=== PATIENT | male | born 1970 | race Two or more races ===

== ENCOUNTER 2017-12-23 19:03 | Emergency (ER) | payer OTHER ==
[~2017-12-23] VITALS: Ht 180.3 cm; Wt 77.1 kg
[~2017-12-23 19:03] MED LIST: ACYC800 PO; ALBIPROI INH; ALBU.083IS IH; ALBU90I INH; ALBU90OI; ALBU90OI INH; ALBU90OI6 INH; ALBUIS IH; AZIT250 PO; Albuterol17 G1 INH; CEPH500 PO; DELTASONE20 MG PO; DULERA 200 MCG/13 GM INH; FLUSAL2505 IH; FLUSAL5005 INH; HYDACE5 PO; HYDACE5325 PO; IPRAIS NEB; LEVO750; LEVO750 PO; Mucinex600 MG PO; OXYACE5T PO; PRED10 PO; PRED20 PO; PRIMATENE MIST; Prednisone20 MG PO; RXOXYACE PO; RXPROM25 PO; SULTRIDS PO; TIOT18 INH; TRIAOI IH; Ventolin Soln3 ML INH; Zithromax250 MG PO; [UNRECOGNIZED DRUG - OTHER]
[2017-12-23] MEDS ORDERED: Zithromax250 MG PO (21:07)
[2017-12-23] MEDS ORDERED: ALBU90OI INH (21:08)
[2017-12-23] MEDS ORDERED: Prednisone20 MG PO (21:08)
[2017-12-23] MEDS ORDERED: Proventil5 MG/1 ML INH (21:14)
[2018-06-16] MEDS ORDERED: Norco 5-325 Ta1 EACH PO (10:42)
[2018-06-16] MEDS ORDERED: Cleocin HCl300 MG PO (10:42)
== END 2017-12-23 21:17 | disposition home or self-care (01) ==
LOC: ER 19:03
DX: J44.1 Chronic obstructive pulmonary disease with (acute) exacerbation (principal); F17.220 Nicotine dependence, chewing tobacco, uncomplicated; Z88.0 Allergy status to penicillin; Z88.6 Allergy status to analgesic agent; Z91.012 Allergy to eggs; Z79.51 Long term (current) use of inhaled steroids; Z79.899 Other long term (current) drug therapy
CPT/HCPCS: 71046; 94644; 99284

== ENCOUNTER 2018-06-15 18:23 | Emergency (ER) | payer OTHER ==
[~2018-06-15] VITALS: Ht 180.3 cm; Wt 79.4 kg
[~2018-06-15 18:23] MED LIST changes: +Proventil5 MG/1 ML INH
[2018-06-16] MEDS ORDERED: Cleocin HCl300 MG PO (10:42)
[2018-06-16] MEDS ORDERED: Norco 5-325 Ta1 EACH PO (10:42)
== END 2018-06-15 20:31 | disposition left against medical advice (07) ==
LOC: ER 18:23
DX: Z53.21 Procedure and treatment not carried out due to patient leaving prior to being seen by health care provider (principal)

== ENCOUNTER 2018-09-23 20:29 | Emergency (ER) | payer OTHER ==
[~2018-09-23] VITALS: Ht 180.3 cm; Wt 63.5 kg
[~2018-09-23 20:29] MED LIST changes: +Cleocin HCl300 MG PO; +Norco 5-325 Ta1 EACH PO
[2018-09-23 21:31] LABS: BASOPHILS ABSOLUTE AUTO 0.06 K/mm3 (0.00-0.23); BASOPHILS PERCENT AUTO 1 % (0-2); EOSINOPHILS ABSOLUTE AUTO 0.32 K/mm3 (0.00-0.68); EOSINOPHILS PERCENT AUTO 4 % (0-6); Hematocrit 40.3 % (37.0-53.0); Hemoglobin 13.5 g/dL (13.5-17.5); IMMATURE GRAN ABSOLUTE AUTO 0.02 K/mm3 (0.00-0.10); IMMATURE GRAN PERCENT AUTO 0 % (0-1); LYMPHOCYTES ABSOLUTE AUTO 2.93 K/mm3 (0.84-5.20); LYMPHOCYTES PERCENT AUTO 40 % (21-46); MONOCYTES ABSOLUTE AUTO 0.51 K/mm3 (0.16-1.47); MONOCYTES PERCENT AUTO 7 % (4-13); Mean Corpuscular HGB Conc 33.5 g/dL (31.5-36.5); Mean Corpuscular Volume 99 fL (80-100); Mean Platelet Volume 10.2 fL (9.1-12.4); NEUTROPHILS ABSOLUTE AUTO 3.52 K/mm3 (1.96-9.15); NEUTROPHILS PERCENT AUTO 48 % (41-73); Platelet Count 328 K/mm3 (150-400); RDW Coefficient Variation 12.4 % (11.7-14.2); RDW Standard Deviation 44.8 fL (35.1-46.3); Red Blood Cell Count 4.09 M/mm3 (4.30-5.90); White Blood Cell Count 7.36 K/mm3 (4.00-11.30)
[2018-09-23 21:50] LABS: Alanine Aminotransfer (ALT/SGP 24 U/L (12-78); Albumin, Blood 3.4 g/dL (3.4-5.0); Albumin/Globulin Ratio 0.9 (0.8-1.8); Alk Phos 94 U/L (50-136); Anion Gap 8 mmol/L (6-16); Aspartate Aminotrans (AST/SGOT 21 U/L (12-37); Bilirubin, Total 0.2 mg/dL (0.1-1.0); Blood Urea Nitrogen 13 mg/dL (8-24); Bun/Creatinine Ratio 15.3 (12.0-20.0); CO2, Blood 27 mmol/L (21-32); Calcium, Blood 8.4 mg/dL (8.5-10.1); Chloride, Blood 102 mmol/L (98-108); Creatinine, Blood 0.85 mg/dL (0.60-1.20); Globulin, Blood 3.8 g/dL (2.2-4.0); Glomerular Filtration Rate >60 (60-); Glucose, Blood 89 mg/dL (70-99); Potassium, Blood 3.8 mmol/L (3.5-5.5); Sodium, Blood 137 mmol/L (136-145); Total Protein, Blood 7.2 g/dL (6.4-8.2)
[2018-09-23] MEDS ORDERED: Monodox100 MG PO (23:29)
== END 2018-09-24 00:25 | disposition home or self-care (01) ==
LOC: ER 20:29
PROVIDERS: Physician Assistant
DX: L03.114 Cellulitis of left upper limb (principal); Z23 Encounter for immunization; J45.909 Unspecified asthma, uncomplicated; F17.220 Nicotine dependence, chewing tobacco, uncomplicated; Z88.0 Allergy status to penicillin; Z88.6 Allergy status to analgesic agent; Z91.012 Allergy to eggs; Z79.899 Other long term (current) drug therapy
CPT/HCPCS: 36415; 80053; 83605; 85025; 90471; 90714; 96365; 99283-25

== ENCOUNTER 2018-10-06 15:55 | Emergency (ER) | payer OTHER ==
[~2018-10-06] VITALS: Ht 180.3 cm; Wt 74.8 kg
[~2018-10-06 15:55] MED LIST changes: +Monodox100 MG PO
[2018-10-06] MEDS ORDERED: Vibramycin100 MG PO (16:53)
[2018-10-06] MEDS ORDERED: Prednisone20 MG PO (16:53)
[2018-10-06] MEDS ORDERED: ALBU3IS INH (16:53)
[2018-10-06] MEDS ORDERED: ALBU90OI INH (16:53)
== END 2018-10-06 17:08 | disposition home or self-care (01) ==
LOC: ER 15:55
DX: J45.901 Unspecified asthma with (acute) exacerbation (principal); L03.012 Cellulitis of left finger; Z88.0 Allergy status to penicillin; Z88.8 Allergy status to other drugs, medicaments and biological substances; Z91.012 Allergy to eggs; F17.220 Nicotine dependence, chewing tobacco, uncomplicated
CPT/HCPCS: 94640; 99283-25

== ENCOUNTER 2018-10-28 22:18 | Emergency (ER) | payer OTHER ==
[~2018-10-28] VITALS: Ht 180.3 cm; Wt 74.8 kg
[~2018-10-28 22:18] MED LIST changes: +ALBU3IS INH; +Vibramycin100 MG PO
[2018-10-28 22:39] LABS: BASOPHILS ABSOLUTE AUTO 0.06 K/mm3 (0.00-0.23); BASOPHILS PERCENT AUTO 1 % (0-2); EOSINOPHILS ABSOLUTE AUTO 0.27 K/mm3 (0.00-0.68); EOSINOPHILS PERCENT AUTO 3 % (0-6); Hematocrit 41.1 % (37.0-53.0); Hemoglobin 13.6 g/dL (13.5-17.5); IMMATURE GRAN ABSOLUTE AUTO 0.14 K/mm3 (0.00-0.10); IMMATURE GRAN PERCENT AUTO 1 % (0-1); LYMPHOCYTES ABSOLUTE AUTO 4.59 K/mm3 (0.84-5.20); LYMPHOCYTES PERCENT AUTO 46 % (21-46); MONOCYTES PERCENT AUTO 6 % (4-13); Mean Corpuscular HGB 32.6 pg (26.0-34.0); Mean Corpuscular HGB Conc 33.1 g/dL (31.5-36.5); Mean Corpuscular Volume 99 fL (80-100); Mean Platelet Volume 9.8 fL (9.1-12.4); NEUTROPHILS ABSOLUTE AUTO 4.25 K/mm3 (1.96-9.15); NEUTROPHILS PERCENT AUTO 43 % (41-73); Platelet Count 335 K/mm3 (150-400); RDW Coefficient Variation 12.5 % (11.7-14.2); RDW Standard Deviation 46.1 fL (35.1-46.3); Red Blood Cell Count 4.17 M/mm3 (4.30-5.90); White Blood Cell Count 9.91 K/mm3 (4.00-11.30)
[2018-10-28 22:57] LABS: Alanine Aminotransfer (ALT/SGP 26 U/L (12-78); Albumin, Blood 3.5 g/dL (3.4-5.0); Albumin/Globulin Ratio 0.9 (0.8-1.8); Alk Phos 91 U/L (50-136); Anion Gap 9 mmol/L (6-16); Aspartate Aminotrans (AST/SGOT 31 U/L (12-37); Bilirubin, Total 0.4 mg/dL (0.1-1.0); Blood Urea Nitrogen 16 mg/dL (8-24); Bun/Creatinine Ratio 13.4 (12.0-20.0); CO2, Blood 27 mmol/L (21-32); Chloride, Blood 101 mmol/L (98-108); Creatinine, Blood 1.19 mg/dL (0.60-1.20); Ethanol (Alcohol), Blood, Med <3 mg/dL; Globulin, Blood 3.7 g/dL (2.2-4.0); Glomerular Filtration Rate >60 (60-); Glucose, Blood 142 mg/dL (70-99); Potassium, Blood 3.3 mmol/L (3.5-5.5); Sodium, Blood 137 mmol/L (136-145); Total Protein, Blood 7.2 g/dL (6.4-8.2)
[2018-10-28 22:59] LABS: International Normalized Ratio 0.96; Prothrombin Time Results 10.2 Sec (9.7-11.5)
== END 2018-10-29 00:26 | disposition short-term general hospital (02) ==
LOC: ER 22:18
PROVIDERS: Emergency Medicine
DX: S27.2XXA Traumatic hemopneumothorax, initial encounter (principal); S22.41XA Multiple fractures of ribs, right side, initial encounter for closed fracture; S12.600A Unspecified displaced fracture of seventh cervical vertebra, initial encounter for closed fracture; S42.001A Fracture of unspecified part of right clavicle, initial encounter for closed fracture; S02.0XXA Fracture of vault of skull, initial encounter for closed fracture; W22.8XXA Striking against or struck by other objects, initial encounter; Z88.0 Allergy status to penicillin; Z88.8 Allergy status to other drugs, medicaments and biological substances; Z91.012 Allergy to eggs; Z79.899 Other long term (current) drug therapy; Z79.52 Long term (current) use of systemic steroids; J45.909 Unspecified asthma, uncomplicated; F17.220 Nicotine dependence, chewing tobacco, uncomplicated
CPT/HCPCS: 31500; 31720; 32551; 36430; 51702; 70450; 71045; 71260; 72125; 74177; 80053; 85025; 85610; 85730; 86850; 86900; 86901; 86923; 90471; 90714; 94002; 94003; 96361; 96374; 99291-25; G0480; J0330; J3010; J7030; L0160; P9016; Q9967

== ENCOUNTER 2018-11-08 23:13 | Inpatient (IN) | payer OTHER ==
[~2018-11-08] VITALS: Ht 180.3 cm; Wt 64.4 kg
[2018-11-08 23:52] LABS: BASOPHILS ABSOLUTE AUTO 0.05 K/mm3 (0.00-0.23); BASOPHILS PERCENT AUTO 1 % (0-2); EOSINOPHILS ABSOLUTE AUTO 0.26 K/mm3 (0.00-0.68); EOSINOPHILS PERCENT AUTO 3 % (0-6); Hemoglobin 10.9 g/dL (13.5-17.5); IMMATURE GRAN ABSOLUTE AUTO 0.04 K/mm3 (0.00-0.10); IMMATURE GRAN PERCENT AUTO 0 % (0-1); LYMPHOCYTES ABSOLUTE AUTO 2.26 K/mm3 (0.84-5.20); LYMPHOCYTES PERCENT AUTO 24 % (21-46); MONOCYTES ABSOLUTE AUTO 0.78 K/mm3 (0.16-1.47); MONOCYTES PERCENT AUTO 8 % (4-13); Mean Corpuscular HGB 31.7 pg (26.0-34.0); Mean Platelet Volume 9.4 fL (9.1-12.4); NEUTROPHILS ABSOLUTE AUTO 6.06 K/mm3 (1.96-9.15); NEUTROPHILS PERCENT AUTO 64 % (41-73); Platelet Count 579 K/mm3 (150-400); RDW Coefficient Variation 13.2 % (11.7-14.2); RDW Standard Deviation 46.4 fL (35.1-46.3); Red Blood Cell Count 3.44 M/mm3 (4.30-5.90); White Blood Cell Count 9.45 K/mm3 (4.00-11.30)
[2018-11-08 23:57] LABS: Mean Corpuscular Volume 96 fL (80-100)
[2018-11-09 00:13] LABS: Alanine Aminotransfer (ALT/SGP 37 U/L (12-78); Albumin, Blood 2.9 g/dL (3.4-5.0); Albumin/Globulin Ratio 0.6 (0.8-1.8); Alk Phos 134 U/L (50-136); Anion Gap 9 mmol/L (6-16); Aspartate Aminotrans (AST/SGOT 19 U/L (12-37); Bilirubin, Total 0.5 mg/dL (0.1-1.0); Blood Urea Nitrogen 9 mg/dL (8-24); Bun/Creatinine Ratio 13.8 (12.0-20.0); CO2, Blood 25 mmol/L (21-32); Calcium, Blood 8.1 mg/dL (8.5-10.1); Chloride, Blood 99 mmol/L (98-108); Creatinine, Blood 0.65 mg/dL (0.60-1.20); Globulin, Blood 4.5 g/dL (2.2-4.0); Glomerular Filtration Rate >60 (60-); Glucose, Blood 92 mg/dL (70-99); Sodium, Blood 133 mmol/L (136-145); Total Protein, Blood 7.4 g/dL (6.4-8.2)
[2018-11-09 00:22] LABS: International Normalized Ratio 1.06; Prothrombin Time Results 11.2 Sec (9.7-11.5)
[2018-11-09] MEDS ORDERED: ALBU90OI61 INH (01:19)
--- NOTE | 2018-11-09 04:31 | NUR ---
PT AWOKE ANXIOUS STATING "I CAN'T BREATH, I'M GOING TO " PT ASSISTED TO SITTING POSITION, VITALS OBTAINED-BP 105/55, HR 107, RR24, SATS 97% ON RA. 2LO2 NC PLACED. PT REP UNABLE TO CLEAR THROAT AFTER COUGHING EPISODE. THICK CLEAR BLOOD TINGED MUCUS W/BLOODY SALIVA NOTED ON PT BED. PT C/O R CHEST PAIN AND TIGHTNESS IN THROAT, IS SWALLOWING W/O DIFFICULTY, ASKING FOR PAIN MED AND FOOD. RF Arrays SX SET UP, PT REFUSING AT THIS TIME. PT TALKING IN SENTENCES, ASSISTED W/SLOW BREATHING, MEDICATED FOR PAIN. VITALS OBTAINED-BP 125/75, HR 92, RR 18, SATS 97% ON 2LNC. PT STILL ANXIOUS, REP LESS SOB. CALL PLACED TO MD, PT VITALS AND EVENT REV W/MD, NEW ORDERS OBTAINED. PT REASSESSED, PT SITTING IN BED, CALMLY TALKING TO FRIEND, REQ TO KEEP NC IN PLACE. WILL CONT TO MONITOR
--- NOTE | 2018-11-09 07:55 | NUR ---
PT NEW ADMIT THIS SHIFT FOR HEMO-PNEUMOTHORAX. PT VSS SINCE ARRIVING TO FLOOR. LUNGS DIM W/FAINT WHEEZING. PT HAS WEAK OCC PROD COUGH. PT DID BECOME QUITE ANXIOUS REP INC SOB; VITALS REMAINED STABLE (SEE PREV NOTE) ATTEMPTS TO REDIRECT AND CALM PT MINIMALLY EFFECTIVE. PT FREQUENTLY STATING "I WANT TO LEAVE" PT NEEDING FREQUENT EDUCATION R/T TX PLAN, PT MINIMALLY RECEPTIVE. PT ENC TO PARTICIPATE IN ADL'S AND SELF CARE, IS MINIMALLY COOPERATIVE. MD UPDATED. REP GIVEN TO DAY RN.
--- NOTE | 2018-11-09 14:50 | NUR ---
PT IS FRUSTRATED AT THIS TIME AND THREATENING TO LEAVE. PT IS WANTING TO EAT. PT WAS EDUCATED ON THE REASON FOR BEING NPO. PT C/O NOT BEING WOKE UP TO RECIEVE PAIN MEDICATION.
--- NOTE | 2018-11-09 16:00 | NUR ---
PT TO OR FOR CHEST TUBE INSERTION. PRO OP ANTIBIOTICS SENT WITH OR NURSE. PT HAD TAKEN A SHOWER WITH MARIA E PRIOR TO LEAVING. BED LINENS CHANGED.
--- NOTE | 2018-11-09 16:47 | NUR ---
History, Chart, Medications and Allergies reviewed before start of procedure.Patient confirms NPO status and agrees with scheduled surgery. NO ANETHESIA FOR CASE PLANED.
--- NOTE | 2018-11-09 17:10 | NUR ---
11/09/18 1710 Renée Jeter CLINDAMYCIN 900 MG IVPB ADMINISTERED BY ORD.GB AT 1656. PRE-OP ANTIBIOTICS. FENTANYL AND VERSED ADMINISTERED BY ORD.GB. CONSCIOUS SEDATION FOR PROCEDURE.
--- NOTE | 2018-11-09 17:49 | NUR ---
DR GARNER PER SIS CUSTOMER QUALITY SPECIALIST, STATES R CHEST TUBE IN CORRECT POSITION
--- NOTE | 2018-11-09 18:14 | NUR ---
PT IS BACK FROM THE OR. HE IS ALERT, AWAKE, TALKING, VSS, RESPIRATIONS UNLABORED. CHEST TUBE INTACT, TO WATER SEAL, DRSG DRY. PT IS ON 2 L O2 VIA NC. O2 SATS >90%. PT FAMILY IS AT THE BEDSIDE. PT WAS GIVEN PO FLUIDS AND JELLO TO START WITH. HE DENIES NAUSEA, PAIN OR SOB AT THIS TIME. WCTM AND REPORT TO NOC RN
--- NOTE | 2018-11-10 04:44 | NUR ---
S/P CHEST TUBE PLACEMENT YESTERDAY FOR PNUOMOTHORAX. PT IS C/O INCREASED PAIN THIS MORINING. LS ARE STILL DIM NOW WITH FINE CRACKLES. CT DRAINED 60ML OF SS FLUID SINCE IT WAS INSERTED. WAS MEDICATED WITH FENT 50 IV. NO CREPITUS NOTED. DRESSING STILL INTACT. WILL MONITOR CLOSELY. SIG OTHER AT BEDSIDE.
--- NOTE | 2018-11-10 04:59 | NUR ---
PT IS UP AMBULATING IN [place] WITH WALKER. STATES FEELS BETTER TO BE UP.
--- NOTE | 2018-11-10 06:11 | NUR ---
PORTABLE CHEST XRAY BEING DONE AT THIS TIME.
--- NOTE | 2018-11-10 16:47 | NUR ---
SHIFT SUMMARY NO ACUTE CHANGES TODAY. VSS. PT MEDICATED WITH 1 NORCO FOR PAIN PRN. CHEST TUBE REMAINS INTACT WITH SLIGHT AIR LEAK. NO CREPITUS NOTED. PT INDEP IN ROOM AND AMBULATING HALLWAY INDEP. PADMINI REG DIET. TELE IN PLACE IN SR. CALL LIGHT WITHIN REACH.
--- NOTE | 2018-11-11 04:59 | NUR ---
SUMMARY: NO ACUTE CHANGE THIS SHIFT. PT DID NOT SLEEP, PT REPORTS THIS IS NORMAL FOR HIM. PT HAD A VISITOR SPEND THE NIGHT. CHEST TUBE WNL, WATER SEAL. 15ML DRAINED THIS SHIFT, MARKED CT CANISTER AT ABOUT 0500. PT DENIES SOB. MEDICATED WITH 1 NARCO ABOUT Q4 FOR CHEST WALL PAIN . VSS, INDEPENDENT IN ROOM. NO ACUTE SAFETY CONCERNS AT THIS TIME.
--- NOTE | 2018-11-11 10:00 | NUR ---
ROUNDING: DR APONTE IN TO SEE PATIENT AND REVIEW RECORDS SENT FROM [facility]. REQUEST FOR FURTHER RECORDS SENT. SLING OFFERED TO PATIENT PER VERBAL ORDER AND PT REMINDED NOT TO BEAR WEIGHT ON RIGHT ARM.
--- NOTE | 2018-11-11 17:33 | NUR ---
Student obtained permission to give care on 11/12. Patient gave permission to student to review medical records.
--- NOTE | 2018-11-11 19:04 | NUR ---
SHIFT SUMMARY PT EATING AND DRINKING. VOIDING AND HAVING BM'S. PT BEEN UP AMBULATING WITH STEADY GAIT. PT BEEN ASSISTED WITH ADL'S PRN. DR BEEN TO SEE PT.
--- NOTE | 2018-11-12 06:11 | NUR ---
PT VSS T/O NIGHT, O2 SATS >90% ON RA. PT DENIED SOB, DOES HAVE OCC PROD COUGH W/BLOOD TINGED MUCUS. CHEST TUBE TO WATER SEAL, NO CREPITUS NOTED, DRESSING INTACT. PAIN MGD W/PO PAIN MEDS W/REP RELIEF. PT AMB INDEP, PADMINI ACTIVITY WELL. PT USING CALL LIGHT FOR ASSISTANCE. CHEST X-RAY COMPLETED THIS AM. WILL CONT TO MONITOR UNTIL REP GIVEN TO ONCOMING RN.
--- NOTE | 2018-11-12 07:26 | NUR ---
ASSUMED CARE ASSUMED CARE OF PT UNDER THE SUPERVISION OF PILY LOOMIS.
--- NOTE | 2018-11-12 11:12 | NUR ---
DR ZEPEDA IN TO ASSESS CHEST TUBE. CHEST TUBE D/C, PT TOLERATED WELL. REQUESTED PAIN MED WITH 10/10 PAIN RATING. GAVE NORCO 7.5/325 UNDER THE SUPERVISION OF EBONIE NASCIMENTO. AWATING DISCHARGE INFO AT THIS TIME. PATIENTS BED IS IN LOW POSITION, WITH CALL LIGHT WITHIN REACH.
--- NOTE | 2018-11-12 12:21 | NUR ---
PT SUMMARY DISCHARGE INSTRUCTIONS REVIEWED WITH PATIENT UNDER THE SUPERVISION OF EAMON LOOMIS. RIGHT FOREARM IV REMOVED, PT TOLERATED WELL. PT IS SITTING IN ROOM EATING LUNCH WAITING FOR HIS RIDE.
--- NOTE | 2018-11-12 14:06 | NUR ---
DC'D HOME, DC INSTRUCTIONS GIVEN BY SN ROEL WITH EAMON VALLADARES RN.
== END 2018-11-12 12:30 | disposition home or self-care (01) | DRG 950 ==
LOC: ER 23:13 → SURS 23:14
PROVIDERS: Emergency Medicine; ADMIT Surgery
PROC: 0W9900Z Drainage of Right Pleural Cavity with Drainage Device, Open Approach (ICD-10-PCS; principal; 2018-11-09 17:00)
DX: S27.2XXD Traumatic hemopneumothorax, subsequent encounter (principal); W20.8XXD Other cause of strike by thrown, projected or falling object, subsequent encounter; F17.228 Nicotine dependence, chewing tobacco, with other nicotine-induced disorders; S27.3 Other and unspecified injuries of lung; S22.41XD Multiple fractures of ribs, right side, subsequent encounter for fracture with routine healing; S42.101D Fracture of unspecified part of scapula, right shoulder, subsequent encounter for fracture with routine healing; S27.329D Contusion of lung, unspecified, subsequent encounter
CPT/HCPCS: 36415; 71045; 71046; 71250; 80053; 85025; 85610; 96361; 96372; 96374; 96375; 96376; 99285-25; C1729; G0378; J1650; J2250; J2405; J3010; J7030

== ENCOUNTER 2018-12-13 17:38 | Emergency (ER) | payer OTHER ==
[~2018-12-13] VITALS: Ht 177.8 cm; Wt 77.1 kg
[~2018-12-13 17:38] MED LIST changes: +ALBU90OI61 INH
== END 2018-12-13 18:29 | disposition home or self-care (01) ==
LOC: ER 17:38
DX: S21.111D Laceration without foreign body of right front wall of thorax without penetration into thoracic cavity, subsequent encounter (principal); S01.01XD Laceration without foreign body of scalp, subsequent encounter; S42.001P Fracture of unspecified part of right clavicle, subsequent encounter for fracture with malunion; Z88.0 Allergy status to penicillin; Z88.6 Allergy status to analgesic agent; J45.909 Unspecified asthma, uncomplicated; F17.220 Nicotine dependence, chewing tobacco, uncomplicated

== ENCOUNTER 2019-05-19 15:10 | Emergency (ER) | payer OTHER ==
[~2019-05-19] VITALS: Ht 180.3 cm; Wt 77.1 kg
== END 2019-05-19 15:35 | disposition left against medical advice (07) ==
LOC: ER 15:10
DX: Z53.21 Procedure and treatment not carried out due to patient leaving prior to being seen by health care provider (principal)

== ENCOUNTER 2022-09-16 00:37 | Emergency (ER) | payer OTHER ==
[~2022-09-16] VITALS: Ht 180.3 cm; Wt 79.4 kg
[2022-09-16] MEDS ORDERED: CLIN300 PO (01:41)
[2022-09-16] MEDS ORDERED: PERIDEX15 ML MM (01:41)
== END 2022-09-16 01:56 | disposition home or self-care (01) ==
LOC: ER 00:37
DX: K02.9 Dental caries, unspecified (principal); F17.220 Nicotine dependence, chewing tobacco, uncomplicated; J45.909 Unspecified asthma, uncomplicated; Z88.0 Allergy status to penicillin; Z88.8 Allergy status to other drugs, medicaments and biological substances; Z79.899 Other long term (current) drug therapy
CPT/HCPCS: 99282

== ENCOUNTER 2024-06-01 23:03 | Emergency (ER) | payer OTHER ==
[~2024-06-01] VITALS: Ht 180.3 cm; Wt 77.1 kg
[~2024-06-01 23:03] MED LIST changes: +CLIN300 PO; +PERIDEX15 ML MM
[2024-06-01] MEDS ORDERED: Ondansetron HCl 2 MG / ML 2ML Vial ONE (23:09)
[2024-06-01] MEDS ORDERED: Ondansetron HCl 2 MG / ML 2ML Vial IV ONE ×2 (23:25→23:55)
[2024-06-01 23:34] LABS: BASOPHILS ABSOLUTE AUTO 0.08 K/mm3 (0.00-0.23); BASOPHILS PERCENT AUTO 1 % (0-2); EOSINOPHILS ABSOLUTE AUTO 0.31 K/mm3 (0.00-0.68); EOSINOPHILS PERCENT AUTO 3 % (0-6); Hematocrit 50.6 % (37.0-53.0); Hemoglobin 16.6 g/dL (13.5-17.5); IMMATURE GRAN ABSOLUTE AUTO 0.02 K/mm3 (0.00-0.10); IMMATURE GRAN PERCENT AUTO 0 % (0-1); LYMPHOCYTES ABSOLUTE AUTO 2.13 K/mm3 (0.84-5.20); LYMPHOCYTES PERCENT AUTO 18 % (21-46); MONOCYTES ABSOLUTE AUTO 0.89 K/mm3 (0.16-1.47); MONOCYTES PERCENT AUTO 8 % (4-13); Mean Corpuscular HGB 31.4 pg (26.0-34.0); Mean Corpuscular HGB Conc 32.8 g/dL (31.5-36.5); Mean Corpuscular Volume 96 fL (80-100); Mean Platelet Volume 10.4 fL (9.1-12.4); NEUTROPHILS ABSOLUTE AUTO 8.48 K/mm3 (1.96-9.15); NEUTROPHILS PERCENT AUTO 71 % (41-73); Platelet Count 360 K/mm3 (150-400); RDW Standard Deviation 49.4 fL (35.1-46.3); Red Blood Cell Count 5.29 M/mm3 (4.30-5.90); White Blood Cell Count 11.91 K/mm3 (4.00-11.30)
[2024-06-01] MEDS ORDERED: NS 1,000 ML IV SCH (23:55)
[2024-06-01] MEDS ORDERED: Ipratropium/Albuterol SulF 2.5-0.5MG/3 ML Amp INH ONE (23:55)
[2024-06-02] LABS: Albumin, Blood 4.1 g/dL (3.4-5.0); Albumin/Globulin Ratio 0.8 (0.8-1.8); Bilirubin, Total 0.7 mg/dL (0.1-1.0); Bun/Creatinine Ratio 16.3 (12.0-20.0); Calcium, Blood 9.8 mg/dL (8.5-10.1); Creatinine, Blood 1.23 mg/dL (0.60-1.20); Globulin, Blood 4.9 g/dL (2.2-4.0); Potassium, Blood 5.4 mmol/L (3.5-5.5)
[2024-06-02 03:30] VITALS: BP 112/80
[2024-06-02] MEDS ORDERED: Ipratropium/Albuterol SulF 2.5-0.5MG/3 ML Amp INH ONE (03:55)
[2024-06-02] MEDS ORDERED: RX Prepack Albuterol 1 PREPACK/6.7 GM INH UD ONE (03:55)
[2024-06-02] MEDS ORDERED: ALBU90OI INH (04:19)
[2024-06-02] MEDS ORDERED: NARCAN4 M1 (04:19)
[2024-06-02] MEDS ORDERED: IPRAT-ALBUT 0.5-3 ML INH (17:31)
[2024-06-02] MEDS ORDERED: PRED20 PO (17:31)
== END 2024-06-02 04:30 | disposition home or self-care (01) ==
LOC: ER 23:03
PROVIDERS: Student in an Organized Health Care Education/Training Program
DX: T40.411A Poisoning by fentanyl or fentanyl analogs, accidental (unintentional), initial encounter (principal); R40.4 Transient alteration of awareness; J44.9 Chronic obstructive pulmonary disease, unspecified; F17.220 Nicotine dependence, chewing tobacco, uncomplicated; Z79.899 Other long term (current) drug therapy; Z88.0 Allergy status to penicillin; Z88.8 Allergy status to other drugs, medicaments and biological substances
CPT/HCPCS: 80053; 85025; 93005; 93010; 94640; 94664; 96361; 96374; 99284-25; A9270; J2405; J7030

== ENCOUNTER 2024-06-02 12:08 | Emergency (ER) | payer OTHER ==
[~2024-06-02] VITALS: Ht 180.3 cm; Wt 68.0 kg
[~2024-06-02 12:08] MED LIST changes: +NARCAN4 M1
[2024-06-02] MEDS ORDERED: MethylPREDNISolone Sod Succ 125 MG Vial IV ONE (13:15)
[2024-06-02] MEDS ORDERED: Albuterol 2.5 MG/3 ML VIAL INH SCH (13:15)
[2024-06-02 13:49] LABS: BASOPHILS ABSOLUTE AUTO 0.04 K/mm3 (0.00-0.23); BASOPHILS PERCENT AUTO 1 % (0-2); EOSINOPHILS ABSOLUTE AUTO 0.34 K/mm3 (0.00-0.68); EOSINOPHILS PERCENT AUTO 5 % (0-6); Hematocrit 44.1 % (37.0-53.0); Hemoglobin 14.5 g/dL (13.5-17.5); IMMATURE GRAN ABSOLUTE AUTO 0.01 K/mm3 (0.00-0.10); IMMATURE GRAN PERCENT AUTO 0 % (0-1); LYMPHOCYTES ABSOLUTE AUTO 1.53 K/mm3 (0.84-5.20); LYMPHOCYTES PERCENT AUTO 23 % (21-46); MONOCYTES ABSOLUTE AUTO 0.45 K/mm3 (0.16-1.47); MONOCYTES PERCENT AUTO 7 % (4-13); Mean Corpuscular HGB Conc 32.9 g/dL (31.5-36.5); Mean Corpuscular Volume 94 fL (80-100); Mean Platelet Volume 10.1 fL (9.1-12.4); NEUTROPHILS ABSOLUTE AUTO 4.26 K/mm3 (1.96-9.15); NEUTROPHILS PERCENT AUTO 64 % (41-73); Platelet Count 252 K/mm3 (150-400); RDW Coefficient Variation 14.1 % (11.7-14.2); RDW Standard Deviation 49.6 fL (35.1-46.3); Red Blood Cell Count 4.68 M/mm3 (4.30-5.90); White Blood Cell Count 6.63 K/mm3 (4.00-11.30)
[2024-06-02 14:11] LABS: Albumin, Blood 3.6 g/dL (3.4-5.0); Albumin/Globulin Ratio 0.9 (0.8-1.8); Bilirubin, Total 0.7 mg/dL (0.1-1.0); Bun/Creatinine Ratio 19.9 (12.0-20.0); Calcium, Blood 9.6 mg/dL (8.5-10.1); Creatinine, Blood 0.81 mg/dL (0.60-1.20); Potassium, Blood 4.8 mmol/L (3.5-5.5); Total Protein, Blood 7.6 g/dL (6.4-8.2)
[2024-06-02 15:45] VITALS: BP 99/71
[2024-06-02] MEDS ORDERED: PRED20 PO (17:31)
[2024-06-02] MEDS ORDERED: IPRAT-ALBUT 0.5-3 ML INH (17:31)
== END 2024-06-02 17:42 | disposition home or self-care (01) ==
LOC: ER 12:08
PROVIDERS: Student in an Organized Health Care Education/Training Program
DX: J44.1 Chronic obstructive pulmonary disease with (acute) exacerbation (principal); F17.220 Nicotine dependence, chewing tobacco, uncomplicated; Z88.0 Allergy status to penicillin; Z88.6 Allergy status to analgesic agent
CPT/HCPCS: 71046; 71260; 80053; 83880; 84484; 85025; 85379; 93005; 93010; 94644; 94664; 96374-59; 99285-25; J2919; Q9967

== ENCOUNTER 2025-02-21 01:33 | Emergency (ER) | payer OTHER ==
[~2025-02-21] VITALS: Ht 180.3 cm; Wt 79.4 kg
[~2025-02-21 01:33] MED LIST changes: +IPRAT-ALBUT 0.5-3 ML INH
[2025-02-21 01:55] VITALS: BP 123/100
[2025-02-21] MEDS ORDERED: Cleocin HCl150 MG PO (06:20)
[2025-02-21] MEDS ORDERED: Clindamycin HCl 150 MG Cap PO ONE (06:20)
== END 2025-02-21 06:31 | disposition home or self-care (01) ==
LOC: ER 01:33
DX: K04.7 Periapical abscess without sinus (principal); F17.220 Nicotine dependence, chewing tobacco, uncomplicated; Z88.8 Allergy status to other drugs, medicaments and biological substances; Z88.0 Allergy status to penicillin; Z79.2 Long term (current) use of antibiotics; J44.9 Chronic obstructive pulmonary disease, unspecified
CPT/HCPCS: 99282; A9270

== ENCOUNTER 2025-05-20 19:04 | Emergency (ER) | payer OTHER ==
[~2025-05-20] VITALS: Ht 180.3 cm; Wt 70.3 kg
[~2025-05-20 19:04] MED LIST changes: +Cleocin HCl150 MG PO
[2025-05-20 23:38] LABS: BASOPHILS ABSOLUTE AUTO 0.05 K/mm3 (0.00-0.23); BASOPHILS PERCENT AUTO 1 % (0-2); EOSINOPHILS ABSOLUTE AUTO 0.34 K/mm3 (0.00-0.68); EOSINOPHILS PERCENT AUTO 5 % (0-6); Hematocrit 45.4 % (37.0-53.0); Hemoglobin 15.2 g/dL (13.5-17.5); IMMATURE GRAN ABSOLUTE AUTO 0.02 K/mm3 (0.00-0.10); IMMATURE GRAN PERCENT AUTO 0 % (0-1); LYMPHOCYTES ABSOLUTE AUTO 2.17 K/mm3 (0.84-5.20); LYMPHOCYTES PERCENT AUTO 34 % (21-46); MONOCYTES ABSOLUTE AUTO 0.26 K/mm3 (0.16-1.47); MONOCYTES PERCENT AUTO 4 % (4-13); Mean Corpuscular HGB Conc 33.5 g/dL (31.5-36.5); Mean Corpuscular Volume 92 fL (80-100); NEUTROPHILS ABSOLUTE AUTO 3.46 K/mm3 (1.96-9.15); NEUTROPHILS PERCENT AUTO 55 % (41-73); NRBC ABSOLUTE 0.00 K/mm3 (0.00-0.02); NRBC Auto 0.0 /100 WBC (0.0-0.2); RDW Coefficient Variation 13.9 % (11.7-14.2); RDW Standard Deviation 47.2 fL (35.1-46.3)
[2025-05-20 23:39] LABS: Platelet Count 185 K/mm3 (150-400)
[2025-05-20 23:47] LABS: Alanine Aminotransfer (ALT/SGP 23.0 U/L (12-78); Albumin, Blood 3.4 g/dL (3.4-5.0); Albumin/Globulin Ratio 0.8 (0.8-1.8); Anion Gap 8.0 mmol/L (3-11); Aspartate Aminotrans (AST/SGOT 20.0 U/L (12-37); Bilirubin, Total 0.9 mg/dL (0.1-1.0); Blood Urea Nitrogen 8.0 mg/dL (8-24); CO2, Blood 29.0 mmol/L (21-32); Calcium, Blood 8.4 mg/dL (8.5-10.1); Chloride, Blood 103.0 mmol/L (98-108); Creatinine, Blood 0.63 mg/dL (0.60-1.20); Globulin, Blood 4.1 g/dL (2.2-4.0); Glucose, Blood 97.0 mg/dL (70-99); Potassium, Blood 4.1 mmol/L (3.5-5.5); Sodium, Blood 136.0 mmol/L (136-145); Total Protein, Blood 7.5 g/dL (6.4-8.2)
[2025-05-21 03:30] VITALS: BP 111/84
== END 2025-05-21 03:50 | disposition home or self-care (01) ==
LOC: ER 19:04
PROVIDERS: Student in an Organized Health Care Education/Training Program
DX: R10.31 Right lower quadrant pain (principal); K40.90 Unilateral inguinal hernia, without obstruction or gangrene, not specified as recurrent; J44.89 Other specified chronic obstructive pulmonary disease; F17.220 Nicotine dependence, chewing tobacco, uncomplicated; Z88.0 Allergy status to penicillin; Z88.6 Allergy status to analgesic agent
CPT/HCPCS: 80053; 83690; 84484; 85025

== ENCOUNTER 2025-10-07 04:23 | Emergency (ER) | payer OTHER ==
[~2025-10-07] VITALS: Ht 180.3 cm; Wt 65.8 kg
[2025-10-07] MEDS ORDERED: NS 500 ML IV SCH ×2 (06:20→06:55)
[2025-10-07] MEDS ORDERED: Ketorolac Tromethamine 30mg Vial IV ONE (06:55)
[2025-10-07] MEDS ORDERED: Metoclopramide HCl 5MG / ML 2ML Vial IV ONE (06:55)
[2025-10-07 07:54] VITALS: BP 99/62
== END 2025-10-07 09:06 | disposition home or self-care (01) ==
LOC: ER 04:23
DX: S09.90XA Unspecified injury of head, initial encounter (principal); G44.309 Post-traumatic headache, unspecified, not intractable; W18.30XA Fall on same level, unspecified, initial encounter; Z88.0 Allergy status to penicillin; J44.9 Chronic obstructive pulmonary disease, unspecified; F17.220 Nicotine dependence, chewing tobacco, uncomplicated
CPT/HCPCS: 70450; 96374; 96375; 99284-25; J1885; J2765; J7030